=== PATIENT | female | born 1935 | race Caucasian/White ===

== ENCOUNTER → 2018-01-20 | Day surgery (SDC) | payer OTHER ==
[2018-01-18 15:06] VITALS: BMI 27.0
[~2018-01-20] VITALS: Ht 152.4 cm; Wt 62.7 kg
[~2018-01-20] MED LIST: ASPCH81X PO; ATOR-24 PO; B-COTAB18 PO; CARB25TA12 PO; CHOL100010 PO; COLE1TAB5 PO; DIAZ-165 PO; HYDR25TA4 PO; LIDOCAINE HCL 2% 2 ML VIAL (20MG/ML) ONE; MAGN250T8 PO; MULT-506 PO; OMEG10007 PO; OMEP40CA41 PO; POTA550T4 PO; PROPOFOL IV EMULSION 10 MG/ML 20 ML VIAL IV ONE; SODIUM CHLORIDE 0.9% 500ML 500 ML IV ONE
[2018-01-20 10:50] VITALS: Ht 152.4 cm; Wt 62.7 kg
--- NOTE | 2018-01-20 11:28 | Endo History and Physical ---
History & Physical Date of Service: Jan 20, 2018. Chief Complaint: DIARRHEA Referring Physician: DR. COOLEY History of Present Illness 82 yo presenting for colonsocopy for diarrhea and rectal bleeding Past Medical History Arthritis, Anxiety, Reflux Past Surgical History Hx Cardiac Surgery: No Hx Internal Defibrillator: No Hx Pacemaker: No Hx Abdominal Surgery: Yes (MARÍA, HYSTERECTOMY) Hx of Implantable Prosthesis: No Hx Post-Op Nausea and Vomiting: No Hx Cancer Surgery: No Hx Thoracic Surgery: No Hx Orthopedic: Yes (RT/LEFT TKA, TRIGGER FINGERS RELEASE, RT CTR) Hx Urinary Tract Surgery: No Family History None Social History Smoking Status: Never Smoker Hx Substance Use: No Hx Alcohol Use: Yes (OCCASIONALLY) Allergies Coded Allergies: Adhesives (Verified Allergy, Unknown, SKIN IRRITATION/ITCHING, 01/20/18) Current Medications Reported Home Medications Medications Dose Route/Sig Max Daily Dose Days Date Category Colestipol Hcl 1 Gm Tab 1 Tab PO BID 01/18/18 Reported Potassium Gluconate 550 Mg Tab 1 Tab PO QAM 01/18/18 Reported Valium (Diazepam) 5 Mg Tab 0.5 Tab PO HS PRN 01/18/18 Reported Hctz (Hydrochlorothiazide) 25 Mg Tab 25 Mg PO QAM 01/18/18 Reported Vitamin D (Cholecalciferol) 1,000 Unit Tab 1 Tab PO QAM 01/18/18 Reported Vitamin B Complex (B-Complex Vitamins) 1 Tab Tab 1 Tab PO QAM 01/18/18 Reported Lipitor (Atorvastatin Calcium) 40 Mg Tab 40 Mg PO QAM 01/18/18 Reported Prilosec (Omeprazole) 40 Mg Cap 40 Mg PO QAM 01/18/18 Reported Aspirin Chewable (Aspirin) 81 Mg Chew 81 Mg PO QAM 01/18/18 Reported Sinemet 25MG/100MG (Carbidopa/Levodopa) Tab 1.5 Tab PO TIDM 08/29/16 Reported Mcconnell-3 (Fish Oil) 1 Ea Cap 1 Cap PO QAM 03/20/14 Reported Multivitamin (Multivitamins) Tab 1 Tab PO QAM 03/20/14 Reported Magnesium (Magnesium Oxide (Mg Supplement) 250 Mg Tab 250 Mg PO QAM 03/20/14 Reported Vital Signs Weight (Kilograms): 62.73 Height (Feet): 5 Height (Inches): 0 Date Time Temp Pulse Resp B/P (MAP) Pulse Ox O2 Delivery O2 Flow Rate FiO2 4/5/18 10:59 36.5 71 18 138/90 (106) 99 Room Air Physical Exam General Appearance: WD/WN, no apparent distress Respiratory/Chest: Respiratory effort: no dyspnea Auscultation: breath sounds normal, CTA except as noted Cardiovascular: Apical Impulse: not displaced Heart Auscultation: RRR, normal S1 Assessment and Plan proceed with colonoscopy for rectal bleeding and diarrhea
--- NOTE | 2018-01-20 12:10 | GI REPORT ---
Procedure Date: 01/20/2018 11:37 AM Procedure: Colonoscopy Indications: Clinically significant diarrhea of unexplained origin Medicines: Monitored Anesthesia Care Complications: No immediate complications. Estimated blood loss: None. Estimated Blood Loss: Estimated blood loss: none. Procedure: Pre-Anesthesia Assessment: - Pre-Anesthesia Assessment: - Prior to the procedure, a History and Physical was performed, and patient medications, allergies and sensitivities were reviewed. The patient's tolerance of previous anesthesia was reviewed. Please see [email or web address] for complete details. - The risks and benefits of the procedure and the sedation options and risks were discussed with the patient. All questions were answered and informed consent was obtained. - Patient identification and proposed procedure were verified prior to the procedure by the physician and the nurse. The procedure was verified in the pre-procedure area in the procedure room. After obtaining informed consent, the endoscope was passed carefully and meticuously under direct vision and only advanced when the lumen was clearly identified, C02 insuflation was utilized throughout the entirity of the procedure. Throughout the procedure, the patient's blood pressure, pulse, and oxygen saturations were monitored continuously. After I obtained informed consent, the scope was passed under direct vision. Throughout the procedure, the patient's blood pressure, pulse, and oxygen saturations were monitored continuously. The scope was introduced through the anus and advanced to the terminal ileum, with identification of the appendiceal orifice and IC valve. The colonoscopy was performed without difficulty. The patient tolerated the procedure well. The quality of the bowel preparation was good. Findings: Multiple small-mouthed diverticula were found in the sigmoid colon. The terminal ileum appeared normal. Fluid aspiration was performed in the entire colon through the scope suction channel. Sample(s) were sent for bacterial cultures, Clostridium difficile and ova and parasites. Biopsies for histology were taken with a cold forceps from the entire colon for evaluation of microscopic colitis. Impression: - Diverticulosis in the sigmoid colon. - The examined portion of the ileum was normal. - Fluid aspiration was performed. - Biopsies were taken with a cold forceps from the entire colon for evaluation of microscopic colitis. Recommendation: - Discharge patient to home (with escort). - Await pathology results. - Ensure adherence to colestipol, if taking, then while biopsies and cultures are pending add Fiber such as metamucil or benefiber once daily dissolved in liquid. Sebastian Acevedo MD 01/20/2018 12:10:04 PM This report has been signed electronically. Note Initiated On: 01/20/2018 11:37 AM I attest to the content of the Intraoperative Record and orders documented therein, exceptions below
--- NOTE | 2018-01-20 12:15 | Discharge Instructions ---
Endoscopy Patient Instructions Date / Procedure(s) Performed Jan 20, 2018. Colonoscopy Allergy Information Coded Allergies: Adhesives (Verified Allergy, Unknown, SKIN IRRITATION/ITCHING, 01/20/18) Discharge Date / Findings Jan 20, 2018. Findings: Multiple small-mouthed diverticula were found in the sigmoid colon. The terminal ileum appeared normal. Fluid aspiration was performed in the entire colon through the scope suction channel. Sample(s) were sent for bacterial cultures, Clostridium difficile and ova and parasites. Biopsies for histology were taken with a cold forceps from the entire colon for evaluation of microscopic colitis. Impression: -Diverticulosis in the sigmoid colon. - The examined portion of the ileum was normal. - Fluid aspiration was performed. - Biopsies were taken with a cold forceps from the entire colon for evaluation of microscopic colitis. Recommendation: - Discharge patient to home (with escort). - Await pathology results. - Ensure adherence to colestipol, if taking, then while biopsies and cultures are pending add Fiber such as metamucil or benefiber once daily dissolved in liquid. Provider Instructions Activity Restrictions - No exercising or heavy lifting for 24 hours. - Do not drink alcohol the day of the procedure. - Do not drive a car or operate machinery until the day after the procedure. - Do not make any important decisions or sign important papers in 24 hours after the procedure. Following Day: - Return to full activity which may include returning to work/school. Diet Start your diet with liquids and light foods (jello, soup, juice, toast). Then eat your usual diet if not nauseated. Treatment For Common After Affects For mild abdominal pain, bloating, or excessive gas: - Rest - Eat lightly - Lie on right side Follow-Up Information Follow-up with DR. COOLEY as scheduled Anesthesia Information What You Should Know You have had a procedure that required some medicine to reduce anxiety and discomfort. This treatment is called moderate sedation. After receiving the treatment, you may be sleepy, but you will be able to breathe on your own. The effects of the treatment may last for several hours. Follow these instructions along with Activity/Diet recommendations noted above: * Do NOT do anything where dizziness or clumsiness would be dangerous. * Rest quietly at home today, then you can be up and about tomorrow. * Have a responsible person stay with you the rest of today. * You may have had an I.V. today. If so, you may take the dressing off later today. Recommendations Call your doctor if: * Trouble breathing * Continuous vomiting for more than 24 hours * Temperature above 101 degrees * Severe abdominal pain or bloating * Pain not relieved by pain medicine ordered * There is increased drainage or redness from any incision * A large amount of rectal bleeding greater than 2-3 tablespoons. (If you had a polyp/s removed or have hemorrhoids, a small amount of blood - from the rectum is to be expected.) * You have any unanswered questions or concerns. IN THE EVENT OF A SERIOUS EMERGENCY, GO TO THE NEAREST EMERGENCY ROOM Your discharge instructions were prepared by provider Sebastian Acevedo. Patient Instructions Signature Page Gemma Rodriguez Patient (or Guardian) Signature/Date: I have read and understand the instructions given to me by my caregivers. Caregiver/RN/Doctor Signature/Date: The above-named patient and/or guardian has received patient instructions on this date. + Original Patient Signature Page (only) stays with chart. Please make copy for patient.
--- NOTE | 2018-01-20 12:24 | Anesthesiology Progress Note ---
Anesthesia Post Op Note Date & Time Jan 20, 2018 at 12:24 Vital Signs Pain Intensity: 0 Vital Signs Past 12 Hours Date Time Temp Pulse Resp B/P (MAP) Pulse Ox O2 Delivery O2 Flow Rate FiO2 01/20/18 12:10 36.5 58 14 128/61 (83) 97 Room Air 01/20/18 10:59 36.5 71 18 138/90 (106) 99 Room Air Notes Mental Status: alert / awake / arousable, participated in evaluation Pt Amnestic to Procedure: Yes Nausea / Vomiting: adequately controlled Pain: adequately controlled Airway Patency, RR, SpO2: stable & adequate BP & HR: stable & adequate Hydration State: stable & adequate Anesthetic Complications: no major complications apparent
[2018-01-20 12:41] VITALS: BP 123/91; PULSE 64; O2SAT 96
== END | disposition home or self-care (01) ==
LOC: C.GI 10:34
PROVIDERS: ATTEND Internal Medicine
DX: R19.7 Diarrhea, unspecified (principal); K57.30 Diverticulosis of large intestine without perforation or abscess without bleeding; F41.9 Anxiety disorder, unspecified; G20 Parkinson's disease; M19.90 Unspecified osteoarthritis, unspecified site; Z90.49 Acquired absence of other specified parts of digestive tract; Z90.710 Acquired absence of both cervix and uterus; Z96.653 Presence of artificial knee joint, bilateral; Z98.890 Other specified postprocedural states; Z88.9 Allergy status to unspecified drugs, medicaments and biological substances; Z79.899 Other long term (current) drug therapy; Z79.82 Long term (current) use of aspirin

== ENCOUNTER 2018-02-08 16:38 | Observation (INO) | payer OTHER ==
[~2018-02-08] VITALS: Ht 152.4 cm; Wt 63.0 kg
[~2018-02-08 16:38] MED LIST changes: -CARB25TA12 PO; -LIDOCAINE HCL 2% 2 ML VIAL (20MG/ML) ONE; -MULT-506 PO; -PROPOFOL IV EMULSION 10 MG/ML 20 ML VIAL IV ONE; -SODIUM CHLORIDE 0.9% 500ML 500 ML IV ONE
[2018-02-08 18:36] LABS: BASO % 0.4 %; BASO ABS # 0.02 K/uL (0-0.2); EOS % 0.7 %; EOS ABS # 0.03 K/uL (0-0.5); HEMATOCRIT 39.6 % (37-47); HEMOGLOBIN 13.4 g/dL (12.0-16.0); IG# 0.01 K/uL (0.00-0.02); LYMPH % 37.8 %; MEAN CELL VOLUME 88.4 fL (80-100); MEAN CORPUSCULAR HEMOGLOBIN 29.9 pg (25-34); MEAN CORPUSCULAR HGB CONC 33.8 g/dl (32-36); MEAN PLATELET VOLUME 9.4 fL (7.4-10.4); MONO % 9.3 %; MONO ABS # 0.42 K/uL (0.11-0.59); NEUT % 51.6 %; NEUT ABS # 2.32 K/uL (1.4-6.5); PLATELET COUNT 112 K/uL (130-400); RED CELL DISTRIBUTION WIDTH SD 41.8 fL (36.4-46.3)
--- NOTE | 2018-02-08 18:39 | DIAGNOSTIC IMAGING REPORT ---
CHEST ONE VIEW PORTABLE CLINICAL HISTORY: Shortness of breath COMPARISON STUDY: August 2016 FINDINGS: The heart is at the upper limits of normal in size.[ There is no failure. There are low lung volumes with hypoventilatory changes at the lung bases. A left suprahilar density, likely represents a summation with vascular markings and first costochondral junction. There are no significant pleural effusions IMPRESSION: 1. Low lung volumes with hypoventilatory changes the lung bases 2. No evidence of lobar consolidation 3. Left superhilar density, statistically representing a vascular and bony summation Electronically signed by: Gian Graves M.D. 02/08/2018 6:38 PM Dictated Date/Time: 02/08/2018 6:36 PM
[2018-02-08] MEDS ORDERED: MCRK20 PO (18:59)
[2018-02-08] MEDS ORDERED: WHEAPOW13 PO (18:59)
[2018-02-08] MEDS ORDERED: LOPE-5 PO (18:59)
--- NOTE | 2018-02-08 18:59 | EMERGENCY ROOM VISIT NOTE ---
History Report prepared by Lena: Ingrid Aldana Under the Supervision of: Dr. Stephen Owens M.D. First contact with patient: 17:57 Chief Complaint: SWELLING TO EXTREMITY Stated Complaint: LEG/ANKLE SWOLLEN, DISORIENTED, DIARRHEA History of Present Illness The patient is an 82 year old female who presents to the Emergency Room with complaints of worsening leg swelling starting 5 days ago. The patient notes that she has a history of Parkinson's Disease. She states that recently she has increased difficulty walking. She reports that her feet will just not go. The patient's daughter complains of the patient being confused. She reports that she will try to change the TV channel with the phone or answer the remote as the phone. The patient complains of weakness, dizziness, and diarrhea. She notes that she has had diarrhea for a month and has seen multiple doctors for it , but everything is negative. The patient denies abdominal pain, abnormal eating /drinking, and changes in her Parkinson medication. The daughter notes that they have tried to get the patient into an inpatient rehab, but the insurance denied it. Source of History: patient, family Onset: 5 days ago Position: leg (bilateral) Quality: other (swelling) Timing: worsening Associated Symptoms: + diarrhea, + weakness, No abdominal pain Note: The patient complains of difficulty walking and dizziness. The patient denies abnormal eating/drinking. Review of Systems See HPI for pertinent positives & negatives. A total of 10 systems reviewed and were otherwise negative. Past Medical & Surgical Medical Problems: (1) Abdominal pain (2) Ambulatory dysfunction (3) Bilateral carpal tunnel syndrome (4) Cholecystitis (5) Dyslipidemia (6) GERD (gastroesophageal reflux disease) (7) Heart murmur (8) HTN (hypertension) (9) Parkinson disease (10) Thrombocytopenia (11) Tremor Surgical Problems: (1) History of hysterectomy (2) History of knee replacement procedure of left knee (3) History of knee replacement procedure of right knee Family History No pertinent family history Social History Smoking Status: Never Smoker Alcohol Use: none Drug Use: none Marital Status: Housing Status: lives with family Occupation Status: retired Current/Historical Medications Scheduled Atorvastatin (Lipitor), 40 MG PO QAM Carbidopa/Levodopa (Sinemet 25MG/100MG), 1.5 TAB PO TIDM Colestipol Hcl (Colestipol Hcl), 1 TAB PO BID Hydrochlorothiazide (Hctz), 25 MG PO QAM Multivitamin (Multivitamin), 1 TAB PO QAM Omeprazole (Prilosec), 40 MG PO QAM Potassium Chloride (Klor-Con M20), 20 MEQ PO BID Wheat Dextrin (Benefiber), 1 DOSE PO BID Scheduled PRN Diazepam (Valium), 0.5 TAB PO HS PRN for Anxiety Loperamide Hcl (Imodium A-D), 2 MG PO QID PRN for Diarrhea Allergies Coded Allergies: Tramadol (Verified Allergy, Severe, ITCHY, 02/08/18) Adhesives (Verified Allergy, Unknown, SKIN IRRITATION/ITCHING, 01/20/18) Physical Exam Vital Signs Date Time Temp Pulse Resp B/P (MAP) Pulse Ox O2 Delivery O2 Flow Rate FiO2 02/08/18 20:48 60 02/08/18 20:48 66 20 99/75 100 Room Air 02/08/18 19:19 56 18 155/53 98 57 155/53 02/08/18 19:16 59 20 154/66 92 Room Air 02/08/18 18:40 58 18 156/68 98 Room Air 02/08/18 18:27 95 Room Air 02/08/18 18:27 95 Room Air 02/08/18 16:38 36.9 64 18 115/70 95 Room Air Physical Exam GENERAL: Awake, alert, well-appearing, in no acute distress HENT: Normocephalic, atraumatic. Oropharynx unremarkable. EYES: Normal conjunctiva. Sclera non-icteric. NECK: Supple. No nuchal rigidity. FROM. No JVD. RESPIRATORY: Clear to auscultation. CARDIAC: Regular rate, normal rhythm. Extremities warm and well perfused. Pulses equal. ABDOMEN: Soft, non-distended. No tenderness to palpation. No rebound or guarding. No masses. RECTAL: Deferred. MUSCULOSKELETAL: Chest examination reveals no tenderness. The back is symmetrical on inspection without obvious abnormality. There is no CVA tenderness to palpation. No joint edema. LOWER EXTREMITIES: Calves are equal size bilaterally and non-tender. 2+ pitting edema up to her knees. No discoloration. NEURO: Normal sensorium. No sensory or motor deficits noted. SKIN: No rash or jaundice noted. Medical Decision & Procedures ER Provider Diagnostic Interpretation: Radiology results as stated below per my review and radiologist interpretation: CHEST ONE VIEW PORTABLE CLINICAL HISTORY: Shortness of breath COMPARISON STUDY: August 2016 FINDINGS: The heart is at the upper limits of normal in size.[ There is no failure. There are low lung volumes with hypoventilatory changes at the lung bases. A left suprahilar density, likely represents a summation with vascular markings and first costochondral junction. There are no significant pleural effusions IMPRESSION: 1. Low lung volumes with hypoventilatory changes the lung bases 2. No evidence of lobar consolidation 3. Left superhilar density, statistically representing a vascular and bony summation Electronically signed by: Gian Graves M.D. 02/08/2018 6:38 PM Dictated Date/Time: 02/08/2018 6:[address] HEAD WITHOUT CONTRAST (CT) CLINICAL HISTORY: Acute change in mental status COMPARISON STUDY: No previous studies for comparison. TECHNIQUE: Axial CT of the brain is performed from the vertex to the skull base. IV contrast was not administered for this examination. A dose lowering technique was utilized adhering to the principles of ALARA. CT DOSE: 614.27 mGy.cm FINDINGS: No intra or extra-axial mass lesions are visualized. There is no CT evidence of acute cortical infarction. There is no evidence of midline shift. There is no acute hemorrhage. No calvarial fractures are visualized. There are patchy white matter hypodensities likely on a small vessel basis. There is no evidence of pathologic ventricular dilatation. There is no evidence of acute sinusitis IMPRESSION: No acute intracranial findings Electronically signed by: Gian Graves M.D. 02/08/2018 7:09 PM Dictated Date/Time: 02/08/2018 7:08 PM ULTRASOUND VENOUS DOPPLER LWR EXT BILA CLINICAL HISTORY: Bilateral leg swelling COMPARISON STUDY: No previous studies for comparison. FINDINGS: Real-time and color flow Doppler imaging were performed. Flow was seen within the femoral, popliteal and calf veins with no intraluminal thrombus demonstrated. The saphenous vein is patent. IMPRESSION: No evidence of lower extremity DVT Electronically signed by: Gian Graves M.D. 02/08/2018 8:27 PM Dictated Date/Time: 02/08/2018 8:26 PM Laboratory Results 02/08/18 18:25 Red Blood Count 4.48, Mean Corpuscular Volume 88.4, Mean Corpuscular Hemoglobin 29.9, Mean Corpuscular Hemoglobin Concent 33.8, Mean Platelet Volume 9.4, Neutrophils (%) (Auto) 51.6, Lymphocytes (%) (Auto) 37.8, Monocytes (%) (Auto) 9.3, Eosinophils (%) (Auto) 0.7, Basophils (%) (Auto) 0.4, Neutrophils # (Auto) 2.32, Lymphocytes # (Auto) 1.70, Monocytes # (Auto) 0.42, Eosinophils # (Auto) 0.03, Basophils # (Auto) 0.02 02/08/18 18:25 Test 02/08/18 18:25 02/08/18 18:30 02/08/18 19:10 White Blood Count 4.50 K/uL (4.8-10.8) Red Blood Count 4.48 M/uL (4.2-5.4) Hemoglobin 13.4 g/dL (12.0-16.0) Hematocrit 39.6 % (37-47) Mean Corpuscular Volume 88.4 fL (80-100) Mean Corpuscular Hemoglobin 29.9 pg (25-34) Mean Corpuscular Hemoglobin Concent 33.8 g/dl (32-36) Platelet Count 112 K/uL (130-400) Mean Platelet Volume 9.4 fL (7.4-10.4) Neutrophils (%) (Auto) 51.6 % Lymphocytes (%) (Auto) 37.8 % Monocytes (%) (Auto) 9.3 % Eosinophils (%) (Auto) 0.7 % Basophils (%) (Auto) 0.4 % Neutrophils # (Auto) 2.32 K/uL (1.4-6.5) Lymphocytes # (Auto) 1.70 K/uL (1.2-3.4) Monocytes # (Auto) 0.42 K/uL (0.11-0.59) Eosinophils # (Auto) 0.03 K/uL (0-0.5) Basophils # (Auto) 0.02 K/uL (0-0.2) RDW Standard Deviation 41.8 fL (36.4-46.3) RDW Coefficient of Variation 13.0 % (11.5-14.5) Immature Granulocyte % (Auto) 0.2 % Immature Granulocyte # (Auto) 0.01 K/uL (0.00-0.02) Anion Gap 5.0 mmol/L (3-11) Est Creatinine Clear Calc Drug Dose 43.1 ml/min Estimated GFR () 75.0 Estimated GFR (Non- 64.7 BUN/Creatinine Ratio 14.2 (10-20) Calcium Level 8.7 mg/dl (8.5-10.1) Magnesium Level 2.2 mg/dl (1.8-2.4) Total Bilirubin 0.5 mg/dl (0.2-1) Direct Bilirubin 0.2 mg/dl (0-0.2) Aspartate Amino Transf (AST/SGOT) 24 U/L (15-37) Alanine Aminotransferase (ALT/SGPT) 22 U/L (12-78) Alkaline Phosphatase 45 U/L (45-117) Total Creatine Kinase 171 U/L (26-192) Creatine Kinase MB 3.8 ng/ml (0.5-3.6) Creatine Kinase MB Ratio 2.2 (0-3.0) Troponin I < 0.015 ng/ml (0-0.045) Pro-B-Type Natriuretic Peptide 127 pg/ml (0-1800) Total Protein 6.7 gm/dl (6.4-8.2) Albumin 3.3 gm/dl (3.4-5.0) Thyroid Stimulating Hormone (TSH) 1.330 uIu/ml (0.300-4.500) Influenza Type A Antigen Neg for Influ A (NEG) Influenza Type B Antigen Neg for Influ B (NEG) Urine Color YELLOW Urine Appearance CLEAR (CLEAR) Urine pH 5.5 (4.5-7.5) Urine Specific [place] 1.016 (1.000-1.030) Urine Protein NEG (NEG) Urine Glucose (UA) NEG (NEG) Urine Ketones NEG (NEG) Urine Occult Blood 1+ (NEG) Urine Nitrite NEG (NEG) Urine Bilirubin NEG (NEG) Urine Urobilinogen NEG (NEG) Urine Leukocyte Esterase SMALL (NEG) Urine WBC (Auto) 1-5 /hpf (0-5) Urine RBC (Auto) 5-10 /hpf (0-4) Urine Hyaline Casts (Auto) 1-5 /lpf (0-5) Urine Epithelial Cells (Auto) >30 /lpf (0-5) Urine Bacteria (Auto) NEG (NEG) Labs reviewed by ED physician. 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 The patient was evaluated in room A2. A complete history and physical examination was performed. 1849: I reevaluated the patient and she was doing well. 1911: Ordered NSS 500 ml @ 999 mls/hr IV. 2035: I discussed the patient's case with Dr. Zita Shelton, he has agreed to evaluate the patient for further management and care. 2045: Ordered Rocephin Inj 1 gm IV. Medical Decision Differential diagnosis: Etiologies such as metabolic, infection, hypo/hyperglycemia, electrolyte abnormalities, cardiac sources, intracerebral event, toxicologic, neurologic, as well as others were entertained. This is a 82 year old female who presents to the Emergency Department not able to walk. The family has been trying to place the patient in [facility] but has been rejected due to Insurance reasons. The patient cannot walk. She also was confused at her 's intermediate today to the point that nursing staff called for an ambulance. The patient does appear to have a urinary tract infection and was started on Rocephin. I did discuss the case with case management however we cannot place the patient tonight due to time. For this reason the patient was admitted to the hospitalist service. Patient and family are in agreement with the treatment plan. Medication Reconcilliation Current Medication List: was personally reviewed by me Blood Pressure Screening Patient's blood pressure: Elevated blood pressure Will be further monitored by the hospitalist. Consults Time Called: 2033 Consulting Physician: Dr. Zita Shelton Returned Call: 2035 I discussed the patient's case with Dr. Zita Shelton, he has agreed to evaluate the patient for further management and care. Impression Primary Impression: UTI (urinary tract infection) Scribe Attestation The scribe's documentation has been prepared under my direction and personally reviewed by me in its entirety. I confirm that the note above accurately reflects all work, treatment, procedures, and medical decision making performed by me. Departure Information Dispostion Being Evaluated By Hospitalist Referrals Carly Prajapati D.O. (PCP) Patient Instructions My [facility] Problem Qualifiers Primary Impression: UTI (urinary tract infection) Urinary tract infection type: acute cystitis Hematuria presence: with hematuria Qualified Codes: N30.01 - Acute cystitis with hematuria
[2018-02-08 19:03] LABS: ALBUMIN 3.3 gm/dl (3.4-5.0); ALT/SGPT 22 U/L (12-78); AST/SGOT 24 U/L (15-37); BLOOD UREA NITROGEN 12 mg/dl (7-18); CALCIUM 8.7 mg/dl (8.5-10.1); CARBON DIOXIDE 30 mmol/L (21-32); CREATININE 0.84 mg/dl (0.60-1.20); GLUCOSE 81 mg/dl (70-99); POTASSIUM 3.7 mmol/L (3.5-5.1); SODIUM 137 mmol/L (136-145)
--- NOTE | 2018-02-08 19:10 | DIAGNOSTIC IMAGING REPORT ---
CT HEAD WITHOUT CONTRAST (CT) CLINICAL HISTORY: Acute change in mental status COMPARISON STUDY: No previous studies for comparison. TECHNIQUE: Axial CT of the brain is performed from the vertex to the skull base. IV contrast was not administered for this examination. A dose lowering technique was utilized adhering to the principles of ALARA. CT DOSE: 614.27 mGy.cm FINDINGS: No intra or extra-axial mass lesions are visualized. There is no CT evidence of acute cortical infarction. There is no evidence of midline shift. There is no acute hemorrhage. No calvarial fractures are visualized. There are patchy white matter hypodensities likely on a small vessel basis. There is no evidence of pathologic ventricular dilatation. There is no evidence of acute sinusitis IMPRESSION: No acute intracranial findings Electronically signed by: Gian Graves M.D. 02/08/2018 7:09 PM Dictated Date/Time: 02/08/2018 7:08 PM
[2018-02-08] MEDS ORDERED: SODIUM CHLORIDE 0.9% 500ML 500 ML IV STA (19:12)
[2018-02-08 19:14] LABS: ALKALINE PHOSPHATASE 45 U/L (45-117); CKMB 3.8 ng/ml (0.5-3.6); TOTAL PROTEIN 6.7 gm/dl (6.4-8.2)
[2018-02-08 19:17] LABS: INFLUENZA B ANTIGEN Neg for Influ B (NEG)
[2018-02-08] MEDS ORDERED: CARB25TA12 PO (20:21)
--- NOTE | 2018-02-08 20:28 | DIAGNOSTIC IMAGING REPORT ---
ULTRASOUND VENOUS DOPPLER LWR EXT BILA CLINICAL HISTORY: Bilateral leg swelling COMPARISON STUDY: No previous studies for comparison. FINDINGS: Real-time and color flow Doppler imaging were performed. Flow was seen within the femoral, popliteal and calf veins with no intraluminal thrombus demonstrated. The saphenous vein is patent. IMPRESSION: No evidence of lower extremity DVT Electronically signed by: Gian Graves M.D. 02/08/2018 8:27 PM Dictated Date/Time: 02/08/2018 8:26 PM
[2018-02-08] MEDS ORDERED: CEFTRIAXONE SOD INJ 1 GM ADDVIAL IV STA (20:46)
[2018-02-08 22:14] VITALS: O2SAT 98
--- NOTE | 2018-02-08 22:20 | History and Physical ---
History & Physical Date & Time of Service: Feb 08, 2018 at 21:30 Chief Complaint: Leg/Ankle Swollen, Disoriented, Diarrhea Primary Care Physician: Carly Prajapati D.O. History of Present Illness Source: patient, family, clinic records, hospital records Pt is 82 y/o F with PMH Parkinson's, HTN, GERD, dyslipidemia, anxiety presented to ER with c/o difficulty walking. Pt uses walker at home. Reports past 5 days has been having increased difficulty and is having trouble getting up from sitting position and trouble "getting legs to move" with walking. Pt states this morning felt dizzy when she was trying to get up and walk. Denies any falls but is very worried she will fall. Has been unable do stairs and cannot raise legs to get into bathtub. Family states was trying to get pt in to [facility] for rehab however was unable to with insurance issues. States approx 4-5 days with bilateral LE edema. Denies extremity pain or paresthesias. Reports restless leg symptoms at bedtime and wakens out of sleep for years, denies worsening. Pt reports has trouble remembering things. Family notices that pt has some confusion for past 6 months and sometimes uses phone as a remote and tries to answer the phone with the remote control. Hx diarrhea x 1 month and followed with GI. was having 8-10 episodes diarrhea daily. Had negative colonoscopy 01/20/18 and negative stool cultures, c-diff and giardia. Pt completed course of flagyl and cipro. Is currently on colestipol, increased dietary fiber and uses Imodium prn. Now having couple episodes diarrhea daily and states today had one episode. States 4 weeks ago had some dysuria which resolved. Denies fever/chills, diaphoresis, N/V/C, GUILLEN, syncope, vision changes, neck pain, CP, SOB, orthopnea, palpitations, cough, sore throat, choking, otalgia, rhinorrhea, abdominal pain, extremity erythema, rashes, hematuria, urinary frequency or retention. Past Medical/Surgical History Medical Problems: (1) Abdominal pain Status: Resolved (2) Bilateral carpal tunnel syndrome Status: Resolved (3) Cholecystitis Status: Resolved (4) Dyslipidemia Status: Chronic (5) GERD (gastroesophageal reflux disease) Status: Chronic (6) Heart murmur Status: Chronic (7) HTN (hypertension) Status: Chronic (8) Parkinson disease Status: Chronic (9) Thrombocytopenia Status: Chronic (10) Tremor Status: Chronic Surgical Problems: (1) History of hysterectomy Status: Resolved (2) History of knee replacement procedure of left knee Status: Resolved (3) History of knee replacement procedure of right knee Status: Resolved Family History Diabetes mellitus Hypertension Social History Smoking Status: Never Smoker Smokeless Tobacco Use: No Alcohol Use: occasionally Drug Use: none Marital Status: Housing status: lives alone Occupational Status: retired Allergies Coded Allergies: Tramadol (Verified Allergy, Severe, ITCHY, 02/08/18) Adhesives (Verified Allergy, Unknown, SKIN IRRITATION/ITCHING, 01/20/18) Home Medications Scheduled Atorvastatin (Lipitor), 40 MG PO QAM Carbidopa/Levodopa (Sinemet 25MG/100MG), 1.5 TAB PO TIDM Colestipol Hcl (Colestipol Hcl), 1 TAB PO BID Hydrochlorothiazide (Hctz), 25 MG PO QAM Multivitamin (Multivitamin), 1 TAB PO QAM Omeprazole (Prilosec), 40 MG PO QAM Potassium Chloride (Klor-Con M20), 20 MEQ PO BID Wheat Dextrin (Benefiber), 1 DOSE PO BID Scheduled PRN Diazepam (Valium), 0.5 TAB PO HS PRN for Anxiety Loperamide Hcl (Imodium A-D), 2 MG PO QID PRN for Diarrhea Review of Systems See HPI for pertinent positives & negatives. All other systems reviewed and were otherwise negative Physical Exam Vital Signs Date Time Temp Pulse Resp B/P (MAP) Pulse Ox O2 Delivery O2 Flow Rate FiO2 02/08/18 20:48 60 02/08/18 20:48 66 20 99/75 100 Room Air 02/08/18 19:19 56 18 155/53 98 57 155/53 02/08/18 19:16 59 20 154/66 92 Room Air 02/08/18 18:40 58 18 156/68 98 Room Air 02/08/18 18:27 95 Room Air 02/08/18 18:27 95 Room Air 02/08/18 16:38 36.9 64 18 115/70 95 Room Air General Appearance: WD/WN, no apparent distress Head: normocephalic, atraumatic Eyes: normal inspection, PERRL, EOMI, sclerae normal ENT: hearing grossly normal, pharynx normal, + pertinent finding (mucous membranes moist) Neck: supple, no JVD, trachea midline Respiratory/Chest: lungs clear, normal breath sounds, no respiratory distress Cardiovascular: regular rate, rhythm (rate 62, +murmur) Abdomen/GI: normal bowel sounds, non tender, soft Back: no CVA tenderness Extremities/Musculoskelatal: no calf tenderness, non-tender, + pedal edema (2+ bilateral) Neurologic/Psych: alert, normal mood/affect, + pertinent finding (oriented to person, place, confused on date) Skin: normal color, warm/dry Diagnostics Laboratory Results Results Past 24 Hours Test 02/08/18 18:25 02/08/18 18:30 02/08/18 19:10 02/08/18 20:41 Range/Units White Blood Count 4.50 4.8-10.8 K/uL Red Blood Count 4.48 4.2-5.4 M/uL Hemoglobin 13.4 12.0-16.0 g/dL Hematocrit 39.6 37-47 % Mean Corpuscular Volume 88.4 80-100 fL Mean Corpuscular Hemoglobin 29.9 25-34 pg Mean Corpuscular Hemoglobin Concent 33.8 32-36 g/dl Platelet Count 112 130-400 K/uL Mean Platelet Volume 9.4 7.4-10.4 fL Neutrophils (%) (Auto) 51.6 % Lymphocytes (%) (Auto) 37.8 % Monocytes (%) (Auto) 9.3 % Eosinophils (%) (Auto) 0.7 % Basophils (%) (Auto) 0.4 % Neutrophils # (Auto) 2.32 1.4-6.5 K/uL Lymphocytes # (Auto) 1.70 1.2-3.4 K/uL Monocytes # (Auto) 0.42 0.11-0.59 K/uL Eosinophils # (Auto) 0.03 0-0.5 K/uL Basophils # (Auto) 0.02 0-0.2 K/uL RDW Standard Deviation 41.8 36.4-46.3 fL RDW Coefficient of Variation 13.0 11.5-14.5 % Immature Granulocyte % (Auto) 0.2 % Immature Granulocyte # (Auto) 0.01 0.00-0.02 K/uL Sodium Level 137 136-145 mmol/L Potassium Level 3.7 3.5-5.1 mmol/L Chloride Level 102 98-107 mmol/L Carbon Dioxide Level 30 21-32 mmol/L Anion Gap 5.0 3-11 mmol/L Blood Urea Nitrogen 12 7-18 mg/dl Creatinine 0.84 0.60-1.20 mg/dl Est Creatinine Clear Calc Drug Dose 43.1 ml/min Estimated GFR () 75.0 Estimated GFR (Non- 64.7 BUN/Creatinine Ratio 14.2 10-20 Random Glucose 81 70-99 mg/dl Calcium Level 8.7 8.5-10.1 mg/dl Total Bilirubin 0.5 0.2-1 mg/dl Direct Bilirubin 0.2 0-0.2 mg/dl Aspartate Amino Transf (AST/SGOT) 24 15-37 U/L Alanine Aminotransferase (ALT/SGPT) 22 12-78 U/L Alkaline Phosphatase 45 45-117 U/L Total Creatine Kinase 171 26-192 U/L Creatine Kinase MB 3.8 0.5-3.6 ng/ml Creatine Kinase MB Ratio 2.2 0-3.0 Troponin I < 0.015 0-0.045 ng/ml Pro-B-Type Natriuretic Peptide 127 0-1800 pg/ml Total Protein 6.7 6.4-8.2 gm/dl Albumin 3.3 3.4-5.0 gm/dl Thyroid Stimulating Hormone (TSH) 1.330 0.300-4.500 uIu/ml Influenza Type A Antigen Neg for Influ A NEG Influenza Type B Antigen Neg for Influ B NEG Urine Color YELLOW Urine Appearance CLEAR CLEAR Urine pH 5.5 4.5-7.5 Urine Specific [place] 1.016 1.000-1.030 Urine Protein NEG NEG Urine Glucose (UA) NEG NEG Urine Ketones NEG NEG Urine Occult Blood 1+ NEG Urine Nitrite NEG NEG Urine Bilirubin NEG NEG Urine Urobilinogen NEG NEG Urine Leukocyte Esterase SMALL NEG Urine WBC (Auto) 1-5 0-5 /hpf Urine RBC (Auto) 5-10 0-4 /hpf Urine Hyaline Casts (Auto) 1-5 0-5 /lpf Urine Epithelial Cells (Auto) >30 0-5 /lpf Urine Bacteria (Auto) NEG NEG Microbiology Results 02/08/18 Urine Culture, Received Pending Diagnostic Radiology CXR: IMPRESSION: 1. Low lung volumes with hypoventilatory changes the lung bases 2. No evidence of lobar consolidation 3. Left superhilar density, statistically representing a vascular and bony summation CT HEAD: IMPRESSION: No acute intracranial findings VENOUS DOPPLER BLE: IMPRESSION: No evidence of lower extremity DVT EKG EKG: sinus bradycardia, rate 56 Impression Assessment and Plan AMBULATORY DYSFUNCTION Pt with hx Parkinson and uses walker, however past 5 days with increased difficulty ambulating. No falls. Family tried to get pt placed to [facility], however was unsuccessful with insurance. Suspect possible Parkinson's progression -PT/OT evaluation -nurse outreach case manager consult for assistance in possible placement/rehab options PARKINSON'S -continue Sinemet -PT/OT eval LE EDEMA Negative venous doppler for DVT. CXR no infiltrate or pleural effusion. BNP: 127. No SOB, orthopnea, CP. -elevate legs, consider deena hose -continue HCTZ, potassium POSSIBLE UTI Pt treated with Rocephin in ER for possible UTI. U/A appears contaminated. No current urinary symptoms, afebrile, no leukocytosis -pending urine culture to determine if further antibiotics warranted CONFUSION Reported pt with confusion past 6 months, denies recent increased confusion. CT head negative acute changes. -continue to monitor HX THROMBOCYTOPENIA Plt: 112. baseline 106-130. no active bleeding -continue to monitor cbc DYSLIPIDEMIA -Continue statin GERD -continue PPI DIARRHEA Had negative out pt workup - negative c-diff, Giardia and stool cultures. negative colonoscopy. Has had decreased diarrhea recently, one episode today -continue colestipol ANXIETY -continue valium HS prn Disposition admit medsurg DNR/DNI as per discussion with pt Follows with Dr Prajapati for routine care Pt was seen with Dr Dumas. See addendum for further assessment and plan Resuscitation Status VTE Prophylaxis Will order VTE Prophylaxis: Yes Additional Copies To Carly Prajapati D.O. Assessment/Plan IM ATTENDING : Patient seen and examined. History obtained from patient and records. Preceding documentation by Ms. Lo Goncalves PA-C reviewed. FINAL ASSESSMENT AND PLAN as follows: 1. Ambulatory dysfunction history of Parkinson's disease slow progression. 2. HTN, slightly elevated 3. Hx cerebrovascular accident as per records. 4. hx of aortic stenosis 5. asymptomatic pyuria, no sepsis. 6. LE swelling secondary to chronic venous insufficiency on diuretic therapy. 7. Chronic diarrhea, outpatient workup unremarkable. 8. Chronic thrombocytopenia. 9 Malnutrition (low BMI). Observation [facility] Fall precautions PT, OT eval. Imodium p.r.n. diarrhea. Continue hydrochlorothiazide for leg swelling Hold off on antibiotics for now until urine culture results available. Social service RE discharge planning. Nutrition consult RE low BMI DVT prophylaxis, SCDs RE thrombocytopenia DNR
[2018-02-08] MEDS ORDERED: MULT-506 PO (22:44)
[2018-02-08 22:53] VITALS: BP 153/75; PULSE 60; TEMP 36.7; O2SAT 95
[2018-02-08] MEDS ORDERED: PROCHLORPERAZINE INJ 5 MG in SYRINGE 4 ML IV PRN (23:00)
[2018-02-08] MEDS ORDERED: LOPERAMIDE HCL 2 MG CAP PO PRN (23:00)
[2018-02-08] MEDS ORDERED: ACETAMINOPHEN 325 MG TAB PO PRN (23:00)
[2018-02-08] MEDS ORDERED: DIAZEPAM 5MG TAB PO PRN (23:00)
[2018-02-08 23:41] VITALS: BP 153/75; PULSE 60; TEMP 36.7; Ht 152.4 cm; Wt 63.0 kg
--- NOTE | 2018-02-09 00:03 | HISTORY & PHYSICAL EXAMINATION ---
DATE OF ADMISSION: 02/08/2018 IM ATTENDING : Patient seen and examined. History obtained from patient and records. Preceding documentation by Ms. Lo Goncalves PA-C reviewed. FINAL ASSESSMENT AND PLAN as follows: 1. Ambulatory dysfunction history of Parkinson's disease slow progression. 2. HTN, slightly elevated 3. Hx cerebrovascular accident as per records. 4. hx of aortic stenosis 5. asymptomatic pyuria, no sepsis. 6. LE swelling secondary to chronic venous insufficiency on diuretic therapy. 7. Chronic diarrhea, outpatient workup unremarkable. 8. Chronic thrombocytopenia. 9 Malnutrition (low BMI). Observation [facility] Fall precautions PT, OT eval. Imodium p.r.n. diarrhea. Continue hydrochlorothiazide for leg swelling Hold off on antibiotics for now until urine culture results available. Social service RE discharge planning. Nutrition consult RE low BMI DVT prophylaxis, SCDs RE thrombocytopenia DNR MTDD
[2018-02-09] MEDS ORDERED: IV FLUIDS COMPLETED PRN (00:15)
[2018-02-09 07:39] VITALS: BP 131/77; PULSE 59; TEMP 36.5; O2SAT 97
[2018-02-09] MEDS: PANTOprazole SOD 40 MG TAB PO SCH (07:55)
[2018-02-09] MEDS: CARBIDOPA/LEVODOPA 25/100MG TAB PO SCH ×3 (07:56→17:42)
[2018-02-09] MEDS: HYDROCHLOROTHIAZIDE 25 MG TAB PO SCH (07:56)
[2018-02-09] MEDS: POTASSIUM CHLORIDE 20 MEQ TABCR PO SCH ×2 (07:57→20:26)
[2018-02-09] MEDS: MULTIVITAMIN TAB PO SCH (07:57)
[2018-02-09] MEDS: CALCIUM POLYCARBOPHIL 1 TAB PO SCH ×2 (08:26→20:26)
[2018-02-09] MEDS: ATORVASTATIN 40 MG TAB PO SCH (08:26)
[2018-02-09] MEDS: COLESTIPOL HCL 1 GM TAB PO SCH ×2 (10:06→21:56)
--- NOTE | 2018-02-09 15:07 | Progress Note ---
Internal Med Progress Note Date of Service: Feb 09, 2018. Provider Documentation: SUBJECTIVE: Seen and examined at bedside On and Off confused per Staff Oriented to time and person currently Denies chest pain, SOB, dizziness, abd pain, dysuria, fever, chills No other complaints Chronic confusion per H&P. unknown baseline No family at bedside OBJECTIVE: Vital Signs-as noted below Physical Exam: Vitals signs as noted above General Appearance:Moderately built and nourished, no apparent distress Head: normocephalic, Atraumatic Eyes: normal inspection, EOMI, PERRL Neck: supple, Trachea midline Respiratory/Chest: Normal breath sounds, CTA Cardiovascular: S1, S2, + systolic murmur Abdomen/GI:Soft, Non tender, Bowel sounds present Extremities/Musculoskelatal:normal inspection, 1-2+ b/l LE edema Neurologic/Psych:AAOX2, grossly no focal neurological deficits, + Resting tremor Skin: normal color, warm Lab data as noted below. ASSESSMENT & PLAN: Ambulatory Dysfunction: H/O Parkinson disease No falls. Family tried to get pt placed to [facility], however was unsuccessful with insurance. PT/OT: recommends Inpatient Rehab case management consulted Fall precautions Parkinson disease continue Sinemet Follows with as outpatient Chronic LE Edema Negative Venous Doppler for DVT. CXR no infiltrate or pleural effusion. BNP: 127. Encourage leg elevation Continue Teds continue HCTZ Possible UTI: U/A appears contaminated. Denies urinary symptoms, afebrile, no leukocytosis Will repeat UA, Urine culture Chronic Confusion: ? Dementia related to Parkinson's Reported pt with confusion past 6 months, denies recent increased confusion. CT head negative acute changes. continue to monitor Chronic Thrombocytopenia: baseline platelets 106-130. no active bleeding issues monitor cbc Dyslipidemia: Continue statin GERD continue PPI Chronic Diarrhea: Had negative out pt workup - negative c-diff, Giardia and stool cultures. negative colonoscopy and Pathology continue colestipol, Increase Fiber in diet monitor Anxiety continue valium HS prn Code Status: DNR/DNI Disposition: Plan to discharge to Rehab facility when stable Vital Signs: Date Time Temp Pulse Resp B/P (MAP) Pulse Ox O2 Delivery O2 Flow Rate FiO2 02/09/18 15:18 36.5 58 18 85/57 (66) 96 02/09/18 08:00 Room Air 02/09/18 07:39 36.5 59 18 131/77 (95) 97 02/09/18 00:00 Room Air 02/08/18 23:41 36.7 60 16 153/75 Room Air 02/08/18 22:53 36.7 60 16 153/75 (101) 95 Room Air 02/08/18 22:14 102 18 166/78 98 Room Air 02/08/18 20:48 60 02/08/18 20:48 66 20 99/75 100 Room Air 02/08/18 19:19 56 18 155/53 98 57 155/53 02/08/18 19:16 59 20 154/66 92 Room Air 02/08/18 18:40 58 18 156/68 98 Room Air 02/08/18 18:27 95 Room Air 02/08/18 18:27 95 Room Air 02/08/18 16:38 36.9 64 18 115/70 95 Room Air Lab Results: Results Past 24 Hours Test 02/08/18 18:25 02/08/18 18:30 02/08/18 19:10 Range/Units White Blood Count 4.50 4.8-10.8 K/uL Red Blood Count 4.48 4.2-5.4 M/uL Hemoglobin 13.4 12.0-16.0 g/dL Hematocrit 39.6 37-47 % Mean Corpuscular Volume 88.4 80-100 fL Mean Corpuscular Hemoglobin 29.9 25-34 pg Mean Corpuscular Hemoglobin Concent 33.8 32-36 g/dl Platelet Count 112 130-400 K/uL Mean Platelet Volume 9.4 7.4-10.4 fL Neutrophils (%) (Auto) 51.6 % Lymphocytes (%) (Auto) 37.8 % Monocytes (%) (Auto) 9.3 % Eosinophils (%) (Auto) 0.7 % Basophils (%) (Auto) 0.4 % Neutrophils # (Auto) 2.32 1.4-6.5 K/uL Lymphocytes # (Auto) 1.70 1.2-3.4 K/uL Monocytes # (Auto) 0.42 0.11-0.59 K/uL Eosinophils # (Auto) 0.03 0-0.5 K/uL Basophils # (Auto) 0.02 0-0.2 K/uL RDW Standard Deviation 41.8 36.4-46.3 fL RDW Coefficient of Variation 13.0 11.5-14.5 % Immature Granulocyte % (Auto) 0.2 % Immature Granulocyte # (Auto) 0.01 0.00-0.02 K/uL Sodium Level 137 136-145 mmol/L Potassium Level 3.7 3.5-5.1 mmol/L Chloride Level 102 98-107 mmol/L Carbon Dioxide Level 30 21-32 mmol/L Anion Gap 5.0 3-11 mmol/L Blood Urea Nitrogen 12 7-18 mg/dl Creatinine 0.84 0.60-1.20 mg/dl Est Creatinine Clear Calc Drug Dose 43.1 ml/min Estimated GFR () 75.0 Estimated GFR (Non- 64.7 BUN/Creatinine Ratio 14.2 10-20 Random Glucose 81 70-99 mg/dl Calcium Level 8.7 8.5-10.1 mg/dl Magnesium Level 2.2 1.8-2.4 mg/dl Total Bilirubin 0.5 0.2-1 mg/dl Direct Bilirubin 0.2 0-0.2 mg/dl Aspartate Amino Transf (AST/SGOT) 24 15-37 U/L Alanine Aminotransferase (ALT/SGPT) 22 12-78 U/L Alkaline Phosphatase 45 45-117 U/L Total Creatine Kinase 171 26-192 U/L Creatine Kinase MB 3.8 0.5-3.6 ng/ml Creatine Kinase MB Ratio 2.2 0-3.0 Troponin I < 0.015 0-0.045 ng/ml Pro-B-Type Natriuretic Peptide 127 0-1800 pg/ml Total Protein 6.7 6.4-8.2 gm/dl Albumin 3.3 3.4-5.0 gm/dl Thyroid Stimulating Hormone (TSH) 1.330 0.300-4.500 uIu/ml Influenza Type A Antigen Neg for Influ A NEG Influenza Type B Antigen Neg for Influ B NEG Urine Color YELLOW Urine Appearance CLEAR CLEAR Urine pH 5.5 4.5-7.5 Urine Specific [place] 1.016 1.000-1.030 Urine Protein NEG NEG Urine Glucose (UA) NEG NEG Urine Ketones NEG NEG Urine Occult Blood 1+ NEG Urine Nitrite NEG NEG Urine Bilirubin NEG NEG Urine Urobilinogen NEG NEG Urine Leukocyte Esterase SMALL NEG Urine WBC (Auto) 1-5 0-5 /hpf Urine RBC (Auto) 5-10 0-4 /hpf Urine Hyaline Casts (Auto) 1-5 0-5 /lpf Urine Epithelial Cells (Auto) >30 0-5 /lpf Urine Bacteria (Auto) NEG NEG Microbiology Results 02/08/18 Urine Culture - Preliminary, Resulted Staphylococcus Aureus Streptococcus Species
[2018-02-09 15:18] VITALS: BP 85/57; PULSE 58; TEMP 36.5; O2SAT 96
[2018-02-09] MEDS ORDERED: SODIUM CHLORIDE 0.9% 1000ML 500 ML IV ONE (15:45)
[2018-02-09] MEDS ORDERED: CEFTRIAXONE SOD INJ 1 GM in DEXTROSE 5% ADD-VANTAGE 50ML 50 ML IV ONE (18:30)
[2018-02-09 23:21] VITALS: BP 102/63; PULSE 59; TEMP 36.3; O2SAT 97
[2018-02-10 05:59] LABS: HEMATOCRIT 39.5 % (37-47); HEMOGLOBIN 13.2 g/dL (12.0-16.0); MEAN CELL VOLUME 88.4 fL (80-100); MEAN CORPUSCULAR HEMOGLOBIN 29.5 pg (25-34); MEAN CORPUSCULAR HGB CONC 33.4 g/dl (32-36); MEAN PLATELET VOLUME 9.2 fL (7.4-10.4); PLATELET COUNT 107 K/uL (130-400); RED CELL DISTRIBUTION WIDTH CV 13.1 % (11.5-14.5); RED CELL DISTRIBUTION WIDTH SD 42.1 fL (36.4-46.3); WHITE BLOOD COUNT 3.51 K/uL (4.8-10.8)
[2018-02-10 06:29] LABS: CALCIUM 8.8 mg/dl (8.5-10.1); CREATININE 0.78 mg/dl (0.60-1.20); POTASSIUM 4.2 mmol/L (3.5-5.1)
[2018-02-10 07:56] VITALS: BP 119/74; PULSE 55; TEMP 36.4; O2SAT 96
[2018-02-10] MEDS: MULTIVITAMIN TAB PO SCH (08:04)
[2018-02-10] MEDS: ATORVASTATIN 40 MG TAB PO SCH (08:04)
[2018-02-10] MEDS: CARBIDOPA/LEVODOPA 25/100MG TAB PO SCH ×3 (08:04→17:07)
[2018-02-10] MEDS: PANTOprazole SOD 40 MG TAB PO SCH (08:04)
[2018-02-10] MEDS: CALCIUM POLYCARBOPHIL 1 TAB PO SCH ×2 (08:05→20:13)
[2018-02-10] MEDS: HYDROCHLOROTHIAZIDE 25 MG TAB PO SCH (08:05)
[2018-02-10] MEDS: POTASSIUM CHLORIDE 20 MEQ TABCR PO SCH ×2 (08:05→20:14)
[2018-02-10] MEDS: COLESTIPOL HCL 1 GM TAB PO SCH ×2 (10:57→21:50)
--- NOTE | 2018-02-10 13:31 | Progress Note ---
Internal Med Progress Note Date of Service: Feb 10, 2018. Provider Documentation: SUBJECTIVE: Seen and examined at bedside Doing well today Mental status seemed to be back to baseline Oriented X3 Denies chest pain, SOB, dizziness, abd pain, dysuria, weakness Has chronic diarrhea No other complaints OBJECTIVE: Vital Signs-as noted below Physical Exam: Vitals signs as noted above General Appearance:Moderately built and nourished, no apparent distress Head: normocephalic, Atraumatic Eyes: normal inspection, EOMI, PERRL Neck: supple, Trachea midline Respiratory/Chest: Normal breath sounds, CTA Cardiovascular: S1, S2, + systolic murmur Abdomen/GI:Soft, Non tender, Bowel sounds present Extremities/Musculoskelatal:normal inspection, 1-2+ b/l LE edema Neurologic/Psych:AAOX2, grossly no focal neurological deficits, + Resting tremor Skin: normal color, warm Lab data as noted below. ASSESSMENT & PLAN: Ambulatory Dysfunction: H/O Parkinson disease No falls. Family tried to get pt placed to [facility], however was unsuccessful with insurance. PT/OT: recommends Inpatient Rehab case management consulted Fall precautions Plan to discharge to Rehab when approved Parkinson disease continue Sinemet Follows with as outpatient Chronic LE Edema Negative Venous Doppler for DVT. CXR no infiltrate or pleural effusion. BNP: 127. Encourage leg elevation Continue Teds continue HCTZ Possible UTI: U/A appears contaminated. Denies urinary symptoms, afebrile, no leukocytosis repeat UA: normal Repeat Urine culture: pending Empirically treat with PO antibiotics while cultures pending Chronic Confusion: ? Dementia related to Parkinson's Reported pt with confusion past 6 months, denies recent increased confusion. CT head negative acute changes. continue to monitor Chronic Thrombocytopenia: baseline platelets 106-130. no active bleeding issues monitor cbc Dyslipidemia: Continue statin GERD continue PPI Chronic Diarrhea: Had negative out pt workup - negative c-diff, Giardia and stool cultures. negative colonoscopy and Pathology continue colestipol, Increase Fiber in diet monitor Anxiety continue Valium HS prn Code Status: DNR/DNI Disposition: Plan to discharge to Rehab facility when approved Vital Signs: Date Time Temp Pulse Resp B/P (MAP) Pulse Ox O2 Delivery O2 Flow Rate FiO2 02/10/18 08:00 Room Air 02/10/18 07:56 36.4 55 18 119/74 (89) 96 02/10/18 00:00 Room Air 02/09/18 23:21 36.3 59 20 102/63 (76) 97 Room Air 02/09/18 16:00 Room Air 02/09/18 15:18 36.5 58 18 85/57 (66) 96 Lab Results: Results Past 24 Hours Test 02/09/18 17:10 02/10/18 05:29 Range/Units Urine Color YELLOW Urine Appearance CLEAR CLEAR Urine pH 5.0 4.5-7.5 Urine Specific [place] 1.018 1.000-1.030 Urine Protein NEG NEG Urine Glucose (UA) NEG NEG Urine Ketones NEG NEG Urine Occult Blood NEG NEG Urine Nitrite NEG NEG Urine Bilirubin NEG NEG Urine Urobilinogen NEG NEG Urine Leukocyte Esterase NEG NEG White Blood Count 3.51 4.8-10.8 K/uL Red Blood Count 4.47 4.2-5.4 M/uL Hemoglobin 13.2 12.0-16.0 g/dL Hematocrit 39.5 37-47 % Mean Corpuscular Volume 88.4 80-100 fL Mean Corpuscular Hemoglobin 29.5 25-34 pg Mean Corpuscular Hemoglobin Concent 33.4 32-36 g/dl RDW Standard Deviation 42.1 36.4-46.3 fL RDW Coefficient of Variation 13.1 11.5-14.5 % Platelet Count 107 130-400 K/uL Mean Platelet Volume 9.2 7.4-10.4 fL Sodium Level 139 136-145 mmol/L Potassium Level 4.2 3.5-5.1 mmol/L Chloride Level 105 98-107 mmol/L Carbon Dioxide Level 31 21-32 mmol/L Anion Gap 3.0 3-11 mmol/L Blood Urea Nitrogen 14 7-18 mg/dl Creatinine 0.78 0.60-1.20 mg/dl Est Creatinine Clear Calc Drug Dose 46.1 ml/min Estimated GFR () 82.1 Estimated GFR (Non- 70.8 BUN/Creatinine Ratio 17.7 10-20 Random Glucose 82 70-99 mg/dl Calcium Level 8.8 8.5-10.1 mg/dl Magnesium Level 2.0 1.8-2.4 mg/dl Microbiology Results 02/09/18 Urine Culture - Preliminary, Resulted NO GROWTH - LESS THAN 1,000 COLONIES/...
[2018-02-10] MEDS: CEFUROXIME AXETIL 250 MG TAB PO SCH ×2 (14:49→20:13)
[2018-02-10 15:57] VITALS: BP 100/64; PULSE 59; TEMP 36.4; O2SAT 100
[2018-02-10 23:43] VITALS: BP 102/66; PULSE 55; TEMP 36.3; O2SAT 95
[2018-02-11 06:34] LABS: CALCIUM 8.8 mg/dl (8.5-10.1); CREATININE 0.85 mg/dl (0.60-1.20); POTASSIUM 3.8 mmol/L (3.5-5.1)
[2018-02-11 07:03] VITALS: BP 109/62; PULSE 57; TEMP 36.6; O2SAT 98
[2018-02-11] MEDS: POTASSIUM CHLORIDE 20 MEQ TABCR PO SCH (07:58)
[2018-02-11] MEDS: CALCIUM POLYCARBOPHIL 1 TAB PO SCH (07:59)
[2018-02-11] MEDS: CEFUROXIME AXETIL 250 MG TAB PO SCH (07:59)
[2018-02-11] MEDS: ATORVASTATIN 40 MG TAB PO SCH (07:59)
[2018-02-11] MEDS: HYDROCHLOROTHIAZIDE 25 MG TAB PO SCH (07:59)
[2018-02-11] MEDS: CARBIDOPA/LEVODOPA 25/100MG TAB PO SCH ×3 (07:59→17:02)
[2018-02-11] MEDS: MULTIVITAMIN TAB PO SCH (09:06)
[2018-02-11] MEDS: PANTOprazole SOD 40 MG TAB PO SCH (09:06)
[2018-02-11] MEDS: COLESTIPOL HCL 1 GM TAB PO SCH (09:53)
--- NOTE | 2018-02-11 13:47 | Progress Note ---
Internal Med Progress Note Date of Service: Feb 11, 2018. Provider Documentation: SUBJECTIVE: Seen and examined at bedside Feels tired today, reports having poor sleep overnight Had PT this morning Denies chest pain, SOB, dysuria Has chronic diarrhea OBJECTIVE: Vital Signs-as noted below Physical Exam: Vitals signs as noted above General Appearance:Moderately built and nourished, no apparent distress Head: normocephalic, Atraumatic Eyes: normal inspection, EOMI, PERRL Neck: supple, Trachea midline Respiratory/Chest: Normal breath sounds, CTA Cardiovascular: S1, S2, + systolic murmur Abdomen/GI:Soft, Non tender, Bowel sounds present Extremities/Musculoskelatal:normal inspection, 1-2+ b/l LE edema Neurologic/Psych:AAOX2, grossly no focal neurological deficits, + Resting tremor Skin: normal color, warm Lab data as noted below. ASSESSMENT & PLAN: Ambulatory Dysfunction: H/O Parkinson disease No falls. Family tried to get pt placed to [facility], however was unsuccessful with insurance. PT/OT: recommends Inpatient Rehab initially but later did well with therapy case management consulted Fall precautions Family/Patient preferred to be discharged home with Home Health Parkinson disease continue Sinemet Follows with as outpatient Chronic LE Edema Negative Venous Doppler for DVT. CXR no infiltrate or pleural effusion. BNP: 127. Encourage leg elevation Continue Teds continue HCTZ Possible UTI Initial U/A appears contaminated. Denies urinary symptoms, afebrile, no leukocytosis repeat UA: normal Repeat Urine culture: no growth Continue PO Abx as showed some improved with treatment Chronic Confusion: ? Dementia related to Parkinson's Reported pt with confusion past 6 months, denies recent increased confusion. CT head negative acute changes. continue to monitor Chronic Thrombocytopenia: baseline platelets 106-130. no active bleeding issues monitor cbc Dyslipidemia: Continue statin GERD continue PPI Chronic Diarrhea: Had negative out pt workup - negative c-diff, Giardia and stool cultures. negative colonoscopy and Pathology continue colestipol, Increase Fiber in diet monitor Anxiety continue Valium HS prn Code Status: DNR/DNI Disposition: Plan to discharge Home with Home Health Follow up with your PCP in 1 week Complete the antibiotics as prescribed Seek immediate medical attention if your symptoms reoccur or worsen Please do not drive until cleared by your primary care physician. Vital Signs: Date Time Temp Pulse Resp B/P (MAP) Pulse Ox O2 Delivery O2 Flow Rate FiO2 02/11/18 08:00 Room Air 02/11/18 07:03 36.6 57 18 109/62 (78) 98 Room Air 02/11/18 01:00 Room Air 02/10/18 23:43 36.3 55 20 102/66 (78) 95 Room Air Lab Results: Results Past 24 Hours Test 02/11/18 05:33 Range/Units Sodium Level 137 136-145 mmol/L Potassium Level 3.8 3.5-5.1 mmol/L Chloride Level 103 98-107 mmol/L Carbon Dioxide Level 31 21-32 mmol/L Anion Gap 3.0 3-11 mmol/L Blood Urea Nitrogen 16 7-18 mg/dl Creatinine 0.85 0.60-1.20 mg/dl Est Creatinine Clear Calc Drug Dose 42.3 ml/min Estimated GFR () 74.0 Estimated GFR (Non- 63.8 BUN/Creatinine Ratio 19.4 10-20 Random Glucose 79 70-99 mg/dl Calcium Level 8.8 8.5-10.1 mg/dl
[2018-02-11] MEDS ORDERED: CFT250 PO (18:00)
--- NOTE | 2018-02-11 18:02 | Discharge Summary ---
Discharge Summary Date of Service Feb 11, 2018. Discharge Summary Admission Date: Feb 08, 2018 at 21:55 Discharge Date: Feb 11, 2018 Discharge Disposition: Home with services Principal Diagnosis: Ambulatory Dysfunction, Possible UTI Procedures: CT Head: No acute intracranial findings CXR: 1. Low lung volumes with hypoventilatory changes the lung bases 2. No evidence of lobar consolidation 3. Left superhilar density, statistically representing a vascular and bony summation Venous Doppler: No evidence of lower extremity DVT Pending Studies/Follow-Up: Follow up with your PCP in 1 week as advised Complete the antibiotics as prescribed Seek immediate medical attention if your symptoms reoccur or worsen Please do not drive until cleared by your primary care physician. Medication Reconciliation New Medications: Cefuroxime Axetil (Cefuroxime Axetil) 250 Mg Tab 250 MG PO BID for 1 Day, #2 TAB Continued Medications: Atorvastatin (Lipitor) 40 Mg Tab 40 MG PO QAM, TAB Carbidopa/Levodopa (Sinemet 25MG/100MG) Tab 1.5 TAB PO TIDM, TAB Colestipol Hcl (Colestipol Hcl) 1 Gm Tab 1 TAB PO BID Diazepam (Valium) 5 Mg Tab 0.5 TAB PO HS PRN for Anxiety, TAB Hydrochlorothiazide (Hctz) 25 Mg Tab 25 MG PO QAM, TAB Loperamide Hcl (Imodium A-D) 2 Mg Tab 2 MG PO QID PRN for Diarrhea TAKE NO MORE THEN 4 TABS PER DAY Multivitamin (Multivitamin) Tab 1 TAB PO QAM, TAB Omeprazole (Prilosec) 40 Mg Cap 40 MG PO QAM, CAP Potassium Chloride (Klor-Con M20) 20 Meq Tabcr 20 MEQ PO BID Wheat Dextrin (Benefiber) 1 Pow Pow 1 DOSE PO BID Admission Information HPI (per Admitting provider): Pt is 82 y/o F with PMH Parkinson's, HTN, GERD, dyslipidemia, anxiety presented to ER with c/o difficulty walking. Pt uses walker at home. Reports past 5 days has been having increased difficulty and is having trouble getting up from sitting position and trouble "getting legs to move" with walking. Pt states this morning felt dizzy when she was trying to get up and walk. Denies any falls but is very worried she will fall. Has been unable do stairs and cannot raise legs to get into bathtub. Family states was trying to get pt in to [facility] for rehab however was unable to with insurance issues. States approx 4-5 days with bilateral LE edema. Denies extremity pain or paresthesias. Reports restless leg symptoms at bedtime and wakens out of sleep for years, denies worsening. Pt reports has trouble remembering things. Family notices that pt has some confusion for past 6 months and sometimes uses phone as a remote and tries to answer the phone with the remote control. Hx diarrhea x 1 month and followed with GI. was having 8-10 episodes diarrhea daily. Had negative colonoscopy 01/20/18 and negative stool cultures, c-diff and giardia. Pt completed course of flagyl and cipro. Is currently on colestipol, increased dietary fiber and uses Imodium prn. Now having couple episodes diarrhea daily and states today had one episode. States 4 weeks ago had some dysuria which resolved. Denies fever/chills, diaphoresis, N/V/C, GUILLEN, syncope, vision changes, neck pain, CP, SOB, orthopnea, palpitations, cough, sore throat, choking, otalgia, rhinorrhea, abdominal pain, extremity erythema, rashes, hematuria, urinary frequency or retention. Physical Exam (per Admitting): General Appearance: WD/WN, no apparent distress Head: normocephalic, atraumatic Eyes: normal inspection, PERRL, EOMI, sclerae normal ENT: hearing grossly normal, pharynx normal, + pertinent finding (mucous membranes moist) Neck: supple, no JVD, trachea midline Respiratory/Chest: lungs clear, normal breath sounds, no respiratory distress Cardiovascular: regular rate, rhythm (rate 62, +murmur) Abdomen/GI: normal bowel sounds, non tender, soft Back: no CVA tenderness Extremities/Musculoskelatal: no calf tenderness, non-tender, + pedal edema ( 2+bilateral) Neurologic/Psych: alert, normal mood/affect, + pertinent finding (oriented to person, place, confused on date) Skin: normal color, warm/dry Hospital Course Ambulatory Dysfunction: H/O Parkinson disease No falls. Family tried to get pt placed to [facility], however was unsuccessful with insurance. PT/OT: recommends Inpatient Rehab initially but later did well with therapy case management consulted Fall precautions Family/Patient preferred to be discharged home with Home Health Parkinson disease continue Sinemet Follows with as outpatient Chronic LE Edema Negative Venous Doppler for DVT. CXR no infiltrate or pleural effusion. BNP: 127. Encourage leg elevation Continue Teds continue HCTZ Possible UTI Initial U/A appears contaminated. Denies urinary symptoms, afebrile, no leukocytosis repeat UA: normal Repeat Urine culture: no growth Continue PO Abx as showed some improved with treatment Chronic Confusion: ? Dementia related to Parkinson's Reported pt with confusion past 6 months, denies recent increased confusion. CT head negative acute changes. continue to monitor Chronic Thrombocytopenia: baseline platelets 106-130. no active bleeding issues monitor cbc Dyslipidemia: Continue statin GERD continue PPI Chronic Diarrhea: Had negative out pt workup - negative c-diff, Giardia and stool cultures. negative colonoscopy and Pathology continue colestipol, Increase Fiber in diet monitor Anxiety continue Valium HS prn Code Status: DNR/DNI Disposition: Plan to discharge Home with Home Health Follow up with your PCP in 1 week Complete the antibiotics as prescribed Seek immediate medical attention if your symptoms reoccur or worsen Please do not drive until cleared by your primary care physician. Total time spent on discharge = This includes examination of the patient, discharge planning, medication reconciliation, and communication with other providers. Discharge Instructions Discharge Instructions Date of Service Feb 11, 2018. Admission Reason for Admission: Ambulatory Dysfunction Discharge Discharge Diagnosis / Problem: Ambulatory dysfunction, Possible UTI Discharge Goals Goal(s): Decrease discomfort, Improve function Activity Recommendations Activity Limitations: resume your previous activity Exercise/Sports Limitations: as tolerated . Instructions / Follow-Up Instructions / Follow-Up Follow up with your PCP in 1 week as advised Complete the antibiotics as prescribed Seek immediate medical attention if your symptoms reoccur or worsen Please do not drive until cleared by your primary care physician. Current Hospital Diet Patient's current hospital diet: AHA Diet (Heart Healthy), Low Lactose Diet Discharge Diet Recommended Diet: AHA Diet (Heart Healthy), Low Lactose Diet Pending Studies Studies pending at discharge: no Medical Emergencies . Who to Call and When: Medical Emergencies: If at any time you feel your situation is an emergency, please call 911 immediately. . Non-Emergent Contact Non-Emergency issues call your: Primary Care Provider Call Non-Emergent contact if: you have a fever, your pain is not controlled, your pain is worsening, your pain is unusual for you, your pain is concerning you, you have any medication questions Seek immediate medical attention if your symptoms reoccur or worsen . . "Provider Documentation" section prepared by Donnie Recinos. .
[2018-02-11 18:24] VITALS: BP 109/62; PULSE 57; TEMP 36.6; O2SAT 98
== END 2018-02-11 18:50 | disposition home health service (06) ==
LOC: C.EDB 16:38 → C.4E 21:55 → ENRESERV 22:20
PROVIDERS: ADMIT Internal Medicine; ATTEND Internal Medicine
DX: R26.89 Other abnormalities of gait and mobility (principal); Z79.899 Other long term (current) drug therapy; G20 Parkinson's disease; I10 Essential (primary) hypertension; K21.9 Gastro-esophageal reflux disease without esophagitis; E78.5 Hyperlipidemia, unspecified; F41.9 Anxiety disorder, unspecified; Z96.653 Presence of artificial knee joint, bilateral; Z88.8 Allergy status to other drugs, medicaments and biological substances